=== PATIENT | female | born 1960 | race Caucasian/White ===

== ENCOUNTER 2017-10-04 14:14 | Emergency (ER) | payer BC, SELFPAY ==
[2017-10-04 14:45] VITALS: BP 148/102; PULSE 86; RESP 20; TEMP 36.4; O2SAT 99
== END 2017-10-04 17:39 | disposition left against medical advice (07) ==
DX: T14.8XXA Other injury of unspecified body region, initial encounter (principal)
CPT/HCPCS: 99281

== ENCOUNTER 2017-10-04 17:46 | Emergency (ER) | payer BC, SELFPAY ==
[2017-10-04 18:00] VITALS: TEMP 37
--- NOTE | 2017-10-04 18:31 | ED.UPPEXIN ---
HPI - Extremity Injury (Upper) <NICK Johnson - Last Filed: 10/04/17 22:33> General Stated Complaint: FISH HOOK IN 3RD DIGIT RIGHT HAND Time Seen by Provider: 10/04/17 18:30 History of Present Illness HPI narrative: 57-year-old female here for complaint of facial to her right middle finger. She states that they were out fishing when she pulled the pole and a hook got stuck on her finger at that timeframe. This happened earlier today. She denies any other injuries. She states she does not know her last tetanus. No other concerns or complaints. complaint: injury to: right and hand Review of Systems <NICK Johnson - Last Filed: 10/04/17 22:33> Constitutional Denies chills, Denies fever(s), Denies lethargy and Denies weakness Eyes Denies change in vision, Denies eye discharge, Denies irritation and Denies loss of vision ENT Ears, Nose, Mouth, and Throat: Denies change in voice, Denies neck pain and Denies sore throat Cardiovascular Denies chest pain, Denies irregular heart rhythm, Denies lightheadedness, Denies palpitations, Denies dyspnea, Denies dyspnea on exertion and Denies orthopnea Respiratory Denies cough, Denies dyspnea, Denies dyspnea on exertion and Denies wheezing Gastrointestinal Gastrointestinal: Denies abdominal pain, Denies change in bowel habits, Denies diarrhea, Denies nausea and Denies vomiting Genitourinary Denies hematuria, Denies flank pain, Denies urinary incontinence and Denies urinary urgency Musculoskeletal Denies neck pain Comments: [place] to distal right middle finger Integumentary/Breasts Denies pruritus, Denies erythema, Denies rash and Denies wounds Neurologic Denies confusion, Denies loss of vision and Denies weakness Psychiatric Denies anxiety, Denies confusion, Denies depression, Denies homicidal ideation and Denies suicidal ideation Endocrine Denies palpitations Allergic/Immunologic Denies wheezing Exam <NICK Johnson - Last Filed: 10/04/17 22:33> Initial Vital Signs Initial Vital Signs: Vital Signs Temperature 98.6 F 10/04/17 18:00 Const General: cooperative and well developed Nutritional Appearance: well nourished Orientation: alert, awake, oriented x3 and not confused HENRI Mouth: oral mucosae normal and moist mucous membranes Eyes General: appearance normal, both eyes and all related structures Eyelids: eyelids normal Conjunctivae: conjunctivae normal Sclera: sclerae normal Pupils: PERRL EOM: EOM intact bilaterally Resp Effort & Inspection: normal respiratory effort, able to speak in complete sentences, no respiratory distress and no use of accessory muscles Auscultation: clear to auscultation bilaterally, no rales, no rhonchi and no wheezes Cardio Rate: regular rate Rhythm: regular rhythm Heart Sounds: no click, no gallops, no murmurs and no rubs Pulses: normal peripheral pulses Skin General: no rashes or lesions noted, No jaundice and No petechiae Neuro General: alert, oriented x3, gait normal and no focal motor deficits Speech: speech normal Extrem Other: fish hook imbedded to the nail bed margin to the ulnar aspect of the right middle finger. Distal sensation is intact. Distal cap refill less than 2 sec. Full range of motion of the nail is intact <Alisia Bynum DO - Last Filed: 10/05/17 05:27> Initial Vital Signs Initial Vital Signs: Vital Signs Temperature 98.6 F 10/04/17 18:00 Course <NICK Johnson - Last Filed: 10/04/17 22:33> Orders Ordered: Discontinued Medications Diphtheria/Tetanus/Acell Pertussis (Adacel) 0.5 ml IM .ONCE ONE Stop: 10/04/17 18:36 Last Admin: 10/04/17 19:19 Dose: 0.5 ml <Alisia Bynum DO - Last Filed: 10/05/17 05:27> Additional Information: Vital signs at 7:43 p.m. Blood pressure 172/76 Heart rate 77 Respirations 20 Temp 98.2? O2 sat 100% Orders Ordered: Discontinued Medications Diphtheria/Tetanus/Acell Pertussis (Adacel) 0.5 ml IM .ONCE ONE Stop: 10/04/17 18:36 Last Admin: 10/04/17 19:19 Dose: 0.5 ml MDM - Extremity Injury (Upper) <NICK Johnson - Last Filed: 10/04/17 22:33> Imaging Data Right fingers : Radiologist's impression: Patient: STORMY GUEVARA MR#: [id number] : 1960 Acct:[id number] Age/Sex: 57 / F Date of Service: 10/04/17 Loc: ED Accession Number: [id number] Procedure: XR finger RT min 2V Ordering Provider: Samir Morrison PROCEDURE: XR FINGER RT MIN 2V INDICATIONS: A fish hook to distal right middle finger TECHNIQUE: AP hand, 2 views of the right third finger(s) acquired. COMPARISON: None. FINDINGS: Bones: No fractures or dislocations. No suspicious bony lesions. Soft tissues: No suspicious soft tissue calcifications. Metallic foreign body compatible with known fish hook noted in the distal soft tissues of the third finger. IMPRESSION: [place] in the distal soft tissues of the right third finger. Dictated by: Edita Roberts MD, PhD on 10/04/2017 at 18:50 Approved by: Edita Roberts MD, PhD on 10/04/2017 at 18:51 MDM Narrative Medical decision making narrative: X-ray the right fingers were obtained and was negative for fracture or bony involvement. Digital block was completed to the right middle finger with 3 mL of 1% lidocaine obtaining good local anesthesia. [place] was removed by cutting shank of hook and advancing hook out distal tip of the middle finger patient tolerated well no complications. Wound dressed with bacitracin and a dressing. Tetanus is updated in the emergency room today. [id number] Tylenol or Motrin as needed for any discomfort. Dress wound daily with bacitracin and dressing until healed. Follow up with primary care provider. Return emergency room for any worsening symptoms. Discharge Plan Departure Patient Disposition: Home, Self-Care Clinical Impression: Fish hook injury of finger of right hand Discharge Date/Time: 10/04/17 19:42 Interventions: ED Discharge Assessment Last Done: 10/04/17 19:43 Instructions: DI for Puncture Wound Activity Restrictions/Additional Instructions: Patient was removed in the emergency room. The wound has been dressed with bacitracin and a dressing. Dress wound daily with antibiotic ointment and a dressing until healed. Use [id number] Tylenol or Motrin as needed for any discomfort. Follow up with primary care provider. Return emergency room for any worsening symptoms. Tetanus was updated in the emergency room today. Referrals: [facility] [Provider Group] <Alisia Bynum DO - Last Filed: 10/05/17 05:27> Cosign ED Attending Cosignature Attestation: I was immediately available in the department for consultation. Documentation has been reviewed. I agree with assessment and plan.
--- NOTE | 2017-10-04 18:35 | ED_ITS ---
HPI - Extremity Injury (Upper) <NICK Johnson - Last Filed: 10/04/17 22:33> General Stated Complaint: FISH HOOK IN 3RD DIGIT RIGHT HAND Time Seen by Provider: 10/04/17 18:30 History of Present Illness HPI narrative: 57-year-old female here for complaint of facial to her right middle finger. She states that they were out fishing when she pulled the pole and a hook got stuck on her finger at that timeframe. This happened earlier today. She denies any other injuries. She states she does not know her last tetanus. No other concerns or complaints. complaint: injury to: right and hand Review of Systems <NICK Johnson - Last Filed: 10/04/17 22:33> Constitutional Denies chills, Denies fever(s), Denies lethargy and Denies weakness Eyes Denies change in vision, Denies eye discharge, Denies irritation and Denies loss of vision ENT Ears, Nose, Mouth, and Throat: Denies change in voice, Denies neck pain and Denies sore throat Cardiovascular Denies chest pain, Denies irregular heart rhythm, Denies lightheadedness, Denies palpitations, Denies dyspnea, Denies dyspnea on exertion and Denies orthopnea Respiratory Denies cough, Denies dyspnea, Denies dyspnea on exertion and Denies wheezing Gastrointestinal Gastrointestinal: Denies abdominal pain, Denies change in bowel habits, Denies diarrhea, Denies nausea and Denies vomiting Genitourinary Denies hematuria, Denies flank pain, Denies urinary incontinence and Denies urinary urgency Musculoskeletal Denies neck pain Comments: [place] to distal right middle finger Integumentary/Breasts Denies pruritus, Denies erythema, Denies rash and Denies wounds Neurologic Denies confusion, Denies loss of vision and Denies weakness Psychiatric Denies anxiety, Denies confusion, Denies depression, Denies homicidal ideation and Denies suicidal ideation Endocrine Denies palpitations Allergic/Immunologic Denies wheezing Exam <NICK Johnson - Last Filed: 10/04/17 22:33> Initial Vital Signs Initial Vital Signs: Vital Signs Temperature 98.6 F 10/04/17 18:00 Const General: cooperative and well developed Nutritional Appearance: well nourished Orientation: alert, awake, oriented x3 and not confused HENMO Mouth: oral mucosae normal and moist mucous membranes Eyes General: appearance normal, both eyes and all related structures Eyelids: eyelids normal Conjunctivae: conjunctivae normal Sclera: sclerae normal Pupils: PERRL EOM: EOM intact bilaterally Resp Effort & Inspection: normal respiratory effort, able to speak in complete sentences, no respiratory distress and no use of accessory muscles Auscultation: clear to auscultation bilaterally, no rales, no rhonchi and no wheezes Cardio Rate: regular rate Rhythm: regular rhythm Heart Sounds: no click, no gallops, no murmurs and no rubs Pulses: normal peripheral pulses Skin General: no rashes or lesions noted, No jaundice and No petechiae Neuro General: alert, oriented x3, gait normal and no focal motor deficits Speech: speech normal Extrem Other: fish hook imbedded to the nail bed margin to the ulnar aspect of the right middle finger. Distal sensation is intact. Distal cap refill less than 2 sec. Full range of motion of the nail is intact <Alisia Bynum DO - Last Filed: 10/05/17 05:27> Initial Vital Signs Initial Vital Signs: Vital Signs Temperature 98.6 F 10/04/17 18:00 Course <NICK Johnson - Last Filed: 10/04/17 22:33> Orders Ordered: Discontinued Medications Diphtheria/Tetanus/Acell Pertussis (Adacel) 0.5 ml IM .ONCE ONE Stop: 10/04/17 18:36 Last Admin: 10/04/17 19:19 Dose: 0.5 ml <Alisia Bynum DO - Last Filed: 10/05/17 05:27> Additional Information: Vital signs at 7:43 p.m. Blood pressure 172/76 Heart rate 77 Respirations 20 Temp 98.2? O2 sat 100% Orders Ordered: Discontinued Medications Diphtheria/Tetanus/Acell Pertussis (Adacel) 0.5 ml IM .ONCE ONE Stop: 10/04/17 18:36 Last Admin: 10/04/17 19:19 Dose: 0.5 ml MDM - Extremity Injury (Upper) <NICK Johnson - Last Filed: 10/04/17 22:33> Imaging Data Right fingers : Radiologist's impression: Patient: STORMY GUEVARA MR#: [id number] : 1960 Acct:[id number] Age/Sex: 57 / F Date of Service: 10/04/17 Loc: ED Accession Number: [id number] Procedure: XR finger RT min 2V Ordering Provider: Samir Morrison PROCEDURE: XR FINGER RT MIN 2V INDICATIONS: A fish hook to distal right middle finger TECHNIQUE: AP hand, 2 views of the right third finger(s) acquired. COMPARISON: None. FINDINGS: Bones: No fractures or dislocations. No suspicious bony lesions. Soft tissues: No suspicious soft tissue calcifications. Metallic foreign body compatible with known fish hook noted in the distal soft tissues of the third finger. IMPRESSION: [place] in the distal soft tissues of the right third finger. Dictated by: Edita Roberts MD, PhD on 10/04/2017 at 18:50 Approved by: Edita Roberts MD, PhD on 10/04/2017 at 18:51 MDM Narrative Medical decision making narrative: X-ray the right fingers were obtained and was negative for fracture or bony involvement. Digital block was completed to the right middle finger with 3 mL of 1% lidocaine obtaining good local anesthesia. [place] was removed by cutting shank of hook and advancing hook out distal tip of the middle finger patient tolerated well no complications. Wound dressed with bacitracin and a dressing. Tetanus is updated in the emergency room today. [id number] Tylenol or Motrin as needed for any discomfort. Dress wound daily with bacitracin and dressing until healed. Follow up with primary care provider. Return emergency room for any worsening symptoms. Discharge Plan Departure Patient Disposition: Home, Self-Care Clinical Impression: Fish hook injury of finger of right hand Discharge Date/Time: 10/04/17 19:42 Interventions: ED Discharge Assessment Last Done: 10/04/17 19:43 Instructions: DI for Puncture Wound Activity Restrictions/Additional Instructions: Patient was removed in the emergency room. The wound has been dressed with bacitracin and a dressing. Dress wound daily with antibiotic ointment and a dressing until healed. Use [id number] Tylenol or Motrin as needed for any discomfort. Follow up with primary care provider. Return emergency room for any worsening symptoms. Tetanus was updated in the emergency room today. Referrals: [facility] [Provider Group] <Alisia Bynum DO - Last Filed: 10/05/17 05:27> Cosign ED Attending Cosignature Attestation: I was immediately available in the department for consultation. Documentation has been reviewed. I agree with assessment and plan.
[2017-10-04] MEDS: TET,DIPH,PERTUSS(ACELL),VAC/PF 0.5 ML SYRINGE IM (19:19)
[2017-10-04 19:43] VITALS: BP 172/96; PULSE 77; RESP 20; TEMP 36.8; O2SAT 100
== END 2017-10-04 19:42 | disposition home or self-care (01) ==
PROVIDERS: Emergency Provider Nurse Practitioner Family
DX: S60.551A Superficial foreign body of right hand, initial encounter (principal); Y93.89 Activity, other specified
CPT/HCPCS: 73140; 90471; 99282; 99283; 90715